=== PATIENT | male | born 1950 | race Caucasian/White ===

== ENCOUNTER 2017-07-18 19:21 | Emergency (ER) | payer OTHER, MEDICARE ==
[~2017-07-18] VITALS: Ht 177.8 cm; Wt 106.6 kg
[~2017-07-18 19:21] MED LIST: ASPIR-LOW81 MG PO; AUGMENTIN 875-1 EACH PO; CORGARD20 MG PO; COZAAR100 MG PO; LEVOTHYROXINE50 MCG PO; LIPITOR80 MG PO; LITHIUM CARBON300 MG PO; NUVIGIL250 MG PO; PANTOPRAZOLE SO40 MG PO; VENLAFAXINE HCL75 M2 PO; VENLAFAXINE HCL75 MG PO
[2017-07-18] MEDS ORDERED: GLIPIZIDE ER5 MG PO (19:56)
== END 2017-07-18 22:48 | disposition home or self-care (01) ==
LOC: ED 19:21
PROC: 0HQDXZZ Repair Right Lower Arm Skin, External Approach (ICD-10-PCS; principal; 2017-07-18)
DX: S56.221A Laceration of other flexor muscle, fascia and tendon at forearm level, right arm, initial encounter (principal); I10 Essential (primary) hypertension; E11.9 Type 2 diabetes mellitus without complications; F32.9 Major depressive disorder, single episode, unspecified; Z79.84 Long term (current) use of oral hypoglycemic drugs; Z79.899 Other long term (current) drug therapy; Z88.8 Allergy status to other drugs, medicaments and biological substances; Z23 Encounter for immunization; W45.8XXA Other foreign body or object entering through skin, initial encounter
CPT/HCPCS: 12032; 90471; 90715; 99282

== ENCOUNTER 2018-11-09 06:10 | Day surgery (SDC) | payer MEDICARE ==
[~2018-11-09] VITALS: Ht 177.8 cm; Wt 106.6 kg
[~2018-11-09 06:10] MED LIST changes: +GLIPIZIDE ER5 MG PO
--- NOTE | 2018-11-09 08:20 | NUR ---
11/09/18 0819 Nilda Barrientos 0815 PATIENT SLEEPING. RESP EVEN AND UNLABORED, NC OFF ON ARRIVAL TO PACU.
--- NOTE | 2018-11-09 10:25 | NUR ---
PT IS ALERT, ORIENTED AND SUPPORTED BY HIS ESME. PT HAS HAD PREVIOUS SCOPES, ESME SOMEWHAT ANXIOUS TODAY-MOSTLY DUE TO HER MEDICAL HISTORY. HAD PLEASANT VISIT, PT REQUESTED PRAYER, WILL FOLLOW NEEDED
--- NOTE | 2018-11-10 10:35 | OR ---
[facility] [address] [place], [place] [address] Signed DATE OF OPERATION: 11/09/2018 SURGEON: Peter Sanchez MD PREOPERATIVE DIAGNOSIS: History of episodic rectal bleeding, possible colitis in July 2018. POSTOPERATIVE DIAGNOSES: 1. Mild cecitis. 2. Internal hemorrhoids. PROCEDURE: Total colonoscopy to cecum with biopsy of cecum. ANESTHESIA: Intravenous sedation, fentanyl 100 mcg, Versed 5 mg. INDICATION: This 68-year-old white man is a patient of Dr. Olivier. He was noted to have abdominal pain, cramping, and blood per rectum and diarrhea while in [place], [place] in July 2018. A CT scan was performed at the emergency room there, which showed "colitis." His symptoms have largely resolved, having had antibiotic therapy. He still has some occasional rectal bleeding, but no diarrhea and no significant issues comparatively. He is admitted at this time to undergo colonoscopy to better characterize his episodic rectal bleeding. He understands the risks of bleeding, infection, and perforation related to colonoscopy and wished to proceed. FINDINGS: The prep was good. Complete colonoscopy was undertaken to the cecum. There was mild cecitis, which biopsies were obtained. Remaining colon appeared normal. There was no polyps or cancer. The rectum appeared normal except for internal hemorrhoids. DESCRIPTION OF PROCEDURE: The patient was brought to the endoscopy suite and placed in lateral decubitus position, given intravenous sedation to the point of slurred speech and nystagmus. Digital rectal examination was normal. An Olympus video colonoscope was passed in the rectum and manipulated throughout the colon, ultimately intubating the cecum itself. The ileocecal valve appeared normal. The appendiceal orifice was normal. There was mild inflammation of the cecum and on Electronically Signed By: PETER SANCHEZ MD 11/10/18 1035 PATIENT NAME: MOIZ GRANT JR OPERATIVE REPORT DATE OF : 52 REPORT #: [id number] PHYSICIAN: PETER SANCHEZ MD PCP: JOCELYN OLIVIER MD REPORT IS CONFIDENTIAL AND NOT TO BE RELEASED WITHOUT AUTHORIZATION [facility] [address] [place], [place] [address] Signed that basis, biopsies were obtained. The scope was then carefully withdrawn and examination throughout showed no sign of polyps, diverticular formation, colitis or cancer. Retroflex view did show internal hemorrhoidal changes. The scope was removed. The patient was taken to recovery room in good condition. CONCLUDING DIAGNOSIS: May well have had colitis in the past, now resolved. The cecum still with mild inflammation and now biopsied. PLAN: We will initiate fiber supplement, Citrucel 1 tablespoon daily. If his symptoms should recur or he should have other problems, I am happy to see him again. I would recommend repeat colonoscopy in 10 years otherwise. MD KEESHA Landry/NATE /[id number] cc: Jocelyn Olivier MD Copies: JOCELYN OLIVIER MD ~ Electronically Signed By: PETER SANCHEZ MD 10/05/19 1035 PATIENT NAME: MOIZ GRANT JR OPERATIVE REPORT DATE OF : 52 REPORT #: [id number] PHYSICIAN: PETER SANCHEZ MD PCP: JOCELYN OLIVIER MD REPORT IS CONFIDENTIAL AND NOT TO BE RELEASED WITHOUT AUTHORIZATION
--- NOTE | 2018-11-12 14:29 | PATH ---
[facility] [address] [place], [place] [address] Signed SPECIMEN(S): A CECUM SPECIMEN SOURCE: A. CECUM CLINICAL HISTORY: Rectal bleeding. MICROSCOPIC DESCRIPTION: Histologic sections of all submitted blocks are examined by light microscopy. These findings, together with the gross examination, support the pathologic diagnosis. FINAL PATHOLOGIC DIAGNOSIS: Colon, cecum, biopsy: - Fragments of benign colonic mucosa with aphthoid lesion. See Comment. - Negative for dysplasia or malignancy. COMMENT: Sections of the benign colonic mucosa demonstrate areas of surface epithelial infiltration by neutrophils overlying a lymphoid follicle. These findings are consistent with an aphthoid lesion, which can be seen following bowel preparation and sometimes appear as polypoid masses during colonoscopy. No granulomas or signs of chronicity, including crypt architectural distortion and basal lymphoplasmacytosis, are identified. No dysplasia or malignancy is seen. NAL:glc:C2NR GROSS DESCRIPTION: The specimen, labeled "RM, cecum," is received in formalin and consists of two rodriguez-white soft tissue fragments each measuring 0.2 cm in greatest dimension. The specimen is entirely submitted in cassette (A1). AR (under the direct supervision of a pathologist) The Gross Description was prepared using a voice recognition system. The report was reviewed for accuracy; however, sound-alike word errors, addition and/or deletions may occur. If there is any question about this report, please contact Client Services. PERFORMING LABORATORY: The technical component was performed by [facility], [address] [place] [id number] ([employer] Youth Supervisor: Zahraa Rodriges MD; CLIA# [id number]). PATIENT NAME: MOIZ GRANT JR PATHOLOGY DATE OF : 52 REPORT #: [id number] PHYSICIAN: TAMMY SENA PCP: JOCELYN PALM MD REPORT IS CONFIDENTIAL AND NOT TO BE RELEASED WITHOUT AUTHORIZATION [facility] [address] [place], [place] [address] Signed Professional interpretation was performed by [facility], [address] [address] ([employer] Supervisor: Masood Kimbrough MD; CLIA# [id number]). Diagnostician: April Mccormick MD Pathologist Electronically Signed 11/12/2018 Copies: ~ PATIENT NAME: MOIZ GRANT JR PATHOLOGY DATE OF : 52 REPORT #: [id number] PHYSICIAN: TAMMY SENA PCP: JOCELYN PALM MD REPORT IS CONFIDENTIAL AND NOT TO BE RELEASED WITHOUT AUTHORIZATION
== END 2018-11-09 09:10 | disposition home or self-care (01) ==
LOC: DS 06:10 → OPS 06:10 → DS 06:45 → OPS 09:10
PROVIDERS: Surgery
PROC: 0DBH8ZX Excision of Cecum, Via Natural or Artificial Opening Endoscopic, Diagnostic (ICD-10-PCS; principal; 2018-11-09 06:45)
DX: K64.8 Other hemorrhoids (principal); K52.9 Noninfective gastroenteritis and colitis, unspecified; F31.9 Bipolar disorder, unspecified; G47.33 Obstructive sleep apnea (adult) (pediatric); I10 Essential (primary) hypertension; K21.0 Gastro-esophageal reflux disease with esophagitis; E11.9 Type 2 diabetes mellitus without complications; G47.30 Sleep apnea, unspecified; E66.9 Obesity, unspecified; Z68.37 Body mass index [BMI] 37.0-37.9, adult; Z86.010 Personal history of colon polyps
CPT/HCPCS: 99153; G0500; J2250; J3010; J7120

== ENCOUNTER 2021-03-21 01:46 | Emergency (ER) | payer MEDICARE ==
[~2021-03-21] VITALS: Ht 177.8 cm; Wt 107.5 kg
[2021-03-21] MEDS ORDERED: METFORMIN HCL500 M1 PO (02:00)
[2021-03-21] MEDS ORDERED: ATIVAN1 MG PO ×2 (03:20→03:21)
--- NOTE | 2021-03-22 06:47 | EKG ---
[facility] [address] [facility] [place] [address] Signed Normal sinus rhythm Right bundle branch block T wave abnormality, consider inferolateral ischemia Abnormal ECG No previous ECGs available Confirmed by LULA BEDOYA MD ([id number]) on 03/22/2021 6:46:54 AM Electronically Signed By: LULA BEDOYA MD 03/22/21 0647 PATIENT NAME: MOIZ GRANT JR Electrocardiogram DATE OF : 52 PHYSICIAN: LULA BEDOYA MD REPORT #: [id number] REPORT IS CONFIDENTIAL AND NOT TO BE RELEASED WITHOUT AUTHORIZATION
== END 2021-03-21 05:24 | disposition home or self-care (01) ==
LOC: ED 01:46
DX: U07.1 COVID-19 (principal); I10 Essential (primary) hypertension; G47.30 Sleep apnea, unspecified; E03.9 Hypothyroidism, unspecified; E11.9 Type 2 diabetes mellitus without complications; Z88.8 Allergy status to other drugs, medicaments and biological substances; Z79.82 Long term (current) use of aspirin; Z79.84 Long term (current) use of oral hypoglycemic drugs; Z79.899 Other long term (current) drug therapy; Z23 Encounter for immunization
CPT/HCPCS: 36415; 71045; 80053; 83735; 83880; 84443; 84484; 85025; 85379; 85610; 93005; 93010; 96374; 99285-25; C9803; J2060; M0247; U0003

== ENCOUNTER 2022-01-19 13:15 | Emergency (ER) | payer MEDICARE ==
[~2022-01-19] VITALS: Ht 177.8 cm; Wt 102.1 kg
[~2022-01-19 13:15] MED LIST changes: +ATIVAN1 MG PO; +METFORMIN HCL500 M1 PO
--- OUTSIDE RECORDS SUMMARY | 2022-01-19 13:18 | XMS ---
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 - Patient with suicidal and/or homicidal ideations eloped. - Patient eloped with IV in place. Details: PATIENT LWBS CRITERIA MET - [facility] CARE PROVIDERS KELLI WALLS Physician Current PHONE: Unknown Alexander has no Care Guidelines for this patient. [facility] VISIT COUNT (12 MO.) 3 [facility] TOTAL 3 NOTE: Visits indicate total known visits. 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
[2022-01-19] MEDS ORDERED: OXYCODONE-ACET1 EAC1 PO (17:10)
[2022-01-19] MEDS ORDERED: DOCUSATE SODIU100 MG PO (17:10)
[2022-01-19] MEDS ORDERED: ONDANSETRON ODT4 MG PO (21:15)
--- NOTE | 2022-01-22 19:00 | EKG ---
[facility] [address] [facility] [place] [address] Signed Normal sinus rhythm Right bundle branch block T wave abnormality, consider inferolateral ischemia Abnormal ECG When compared with ECG of 21-MAR-2021 01:56, T wave inversion more evident in Anterior leads QT has lengthened Confirmed by ELENI KERN MD ([id number]) on 01/22/2022 7:00:38 PM Electronically Signed By: ELENI KERN MD 01/22/22 1900 PATIENT NAME: MOIZ GRANT JR Electrocardiogram DATE OF : 52 PHYSICIAN: ELENI KERN MD REPORT #: [id number] REPORT IS CONFIDENTIAL AND NOT TO BE RELEASED WITHOUT AUTHORIZATION
== END 2022-01-19 21:34 | disposition home or self-care (01) ==
LOC: ED 13:15
DX: B34.9 Viral infection, unspecified (principal); I10 Essential (primary) hypertension; G47.30 Sleep apnea, unspecified; E03.9 Hypothyroidism, unspecified; E11.9 Type 2 diabetes mellitus without complications; Z88.8 Allergy status to other drugs, medicaments and biological substances; Z79.899 Other long term (current) drug therapy; Z79.84 Long term (current) use of oral hypoglycemic drugs
CPT/HCPCS: 36415; 71045; 80053; 83735; 84484; 85025; 93005; 93010; 96361; 96374; 96375; 99285-25; J2405; J7030

== ENCOUNTER 2022-09-22 11:42 | Emergency (ER) | payer MEDICARE ==
[~2022-09-22] VITALS: Ht 177.8 cm; Wt 96.6 kg
--- OUTSIDE RECORDS SUMMARY | ~2022-09-22 | XMS | Continuity of Care Document ---
Demographics + + + | Address | [address] | | | [place] [address] | + + + | Preferred Language | Unknown | + + + | Marital Status | | + + + | Latter Day Affiliation | Unknown | + + + | Race | White | + + + | Ethnic Group | Not or | + + + Author + + + | Author | [facility] | + + + | Organization | [facility] | + + + | Address | [address] [facility] | | | [place] [address] | + + + | Phone | | + + + Care Team Providers + + + + | Care Regional Economic Liaison Name | Role | Phone | + + + + Unavailable | Unavailable | + + + + Unavailable | Unavailable | + + + + Allergies and Intolerances + + + + + + | date | description | facility | reaction | severity | + + + + + + | (no date) | Quetiapine | [facility] | (no reaction) | (no severity) | | [facility] | | | + + + + + + | (no date) | Quetiapine | [facility] | (no reaction) | (no severity) | | | [facility] | | | + + + + + + | (no date) | Palpitations | [facility] | (no reaction) | (no severity) | | | [facility] | | | + + + + + + | (no date) | Quetiapine | [facility] | (no reaction) | (no severity) | | | | [facility] | | | + + + + + + Encounters No information. Functional Status No information. Immunizations + + + + | date | description | facility | + + + + | 2017-07-18 00:00 | Tdap | [facility] | + + + + Medications + + + + | date | description | facility | + + + + | 2021-03-21 00:00 | LORAZEPAM | [facility] | + + + + | 2022-01-19 00:00 | ONDANSETRON | [facility] | + + + + | 2022-01-19 00:00 | OXYCODONE | [facility] | | | HCL/ACETAMINOPHEN | | + + + + | 2022-01-19 00:00 | DOCUSATE SODIUM | [facility] | + + + + | 2015-08-17 00:00 | ASPIRIN | [facility] | + + + + | 2021-11-28 00:00 | LITHIUM CARBONATE | [facility] | + + + + | 2022-01-19 00:00 | LITHIUM CARBONATE | [facility] | + + + + | 2021-11-28 00:00 | NADOLOL | [facility] | + + + + | 2022-01-19 00:00 | NADOLOL | [facility] | + + + + | 2015-08-17 00:00 | ATORVASTATIN | [facility] | + + + + | 2021-11-28 00:00 | GLIPIZIDE | [facility] | + + + + | 2022-01-19 00:00 | GLIPIZIDE | [facility] | + + + + | 2021-11-28 00:00 | PANTOPRAZOLE SODIUM | [facility] | + + + + | 2022-01-19 00:00 | PANTOPRAZOLE SODIUM | [facility] | + + + + | 2021-11-28 00:00 | VENLAFAXINE HCL | [facility] | + + + + | 2022-01-19 00:00 | VENLAFAXINE HCL | [facility] | + + + + | 2021-11-28 00:00 | METFORMIN HCL | [facility] | + + + + | 2022-01-19 00:00 | METFORMIN HCL | [facility] | + + + + | 2021-11-28 00:00 | LEVOTHYROXINE SODIUM | [facility] | + + + + | 2022-01-19 00:00 | LEVOTHYROXINE SODIUM | [facility] | + + + + | 2015-08-17 00:00 | LOSARTAN POTASSIUM | [facility] | + + + + | 2021-11-28 00:00 | LOSARTAN POTASSIUM | [facility] | + + + + | 2022-01-19 00:00 | LOSARTAN POTASSIUM | [facility] | + + + + Problems + + + + | date | description | facility | + + + + | 2015-08-16 00:00 | Acute cerebrovascular | [facility] | | | accident (CVA) | | + + + + | 2015-08-17 00:00 | Transient cerebral | [facility] | | | ischemia | | + + + + | 2017-07-18 00:00 | Laceration of right | [facility] | | | forearm with tendon | | | | involvement | | + + + + | 2021-03-21 00:00 | Infection due to severe | [facility] | | | acute respiratory syndrome | | | | coronavirus 2 (SARS-CoV-2) | | + + + + | 2021-11-28 00:00 | Patient left without being | [facility] | | | seen | | + + + + | 2022-01-19 00:00 | Viral infection | 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 Results/Labs +--------+--------+ +---------+--------+---------+ | test | date | facility | value | unit | notes | +--------+--------+ +---------+--------+---------+ + + | Result panel 1 | + + + + + +-------+ + + | | 2022-01-19 | [facility] | 8.3 | (missing) | (missing) | | (unavailable | 18:15:08 [facility] | | | | + + + +-------+ + + + + | Result panel 2 | + + + + + +--------+ + + | | 2022-01-19 | [facility] | 66.6 | (missing) | (missing) | | (unavailable | 18:15:08 [facility] | | | | + + + +--------+ + + + + | Result panel 3 | + + + + + +--------+ + + | | 2022-01-19 | [facility] | 18.6 | (missing) | (missing) | | (unavailable | 18:15:08 [facility] | | | | + + + +--------+ + + + + | Result panel 4 | + + + + + +--------+ + + | | 2022-01-19 | [facility] | 10.0 | (missing) | (missing) | | (unavailable | 18:15:08 [facility] | | | | + + + +--------+ + + + + | Result panel 5 | + + + + + +-------+ + + | | 2022-01-19 | [facility] | 4.0 | (missing) | (missing) | | (unavailable | 18:15:08 [facility] | | | | + + + +-------+ + + + + | Result panel 6 | + + + + + +-------+ + + | | 2022-01-19 | [facility] | 0.8 | (missing) | (missing) | | (unavailable | 18:15:08 [facility] | | | | + + + +-------+ + + + + | Result panel 7 | + + + + + +------+---------+ + | | 2022-01-19 | [facility] | 76 | mg/dL | (missing) | | (unavailable | 18:15:08 [facility] | | | | + + + +------+---------+ + + + | Result panel 8 | + + + + + +------+---------+ + | | 2022-01-19 | [facility] | 19 | mg/dL | (missing) | | (unavailable | 18:15:08 [facility] | | | | + + + +------+---------+ + + + | Result panel 9 | + + + + + +--------+---------+ + | | 2022-01-19 | [facility] | 1.28 | mg/dL | (missing) | | (unavailable | 18:15:08 [facility] | | | | + + + +--------+---------+ + + + | Result panel 10 | + + + + + +------+ + + | | 2022-01-19 | [facility] | 60 | (missing) | (missing) | | (unavailable | 18:15:08 [facility] | | | | + + + +------+ + + + + | Result panel 11 | + + + + + +--------+ + + | | 2022-01-19 | [facility] | 4.77 | (missing) | (missing) | | (unavailable | 18:15:08 [facility] | | | | + + + +--------+ + + + + | Result panel 12 | + + + + + +---------+ + + | | 2022-01-19 | [facility] | 14.84 | (missing) | (missing) | | (unavailable | 18:15:08 [facility] | | | | + + + +---------+ + + + + | Result panel 13 | + + + + + +-------+ + + | | 2022-01-19 | [facility] | 137 | (missing) | (missing) | | (unavailable | 18:15:08 [facility] | | | | + + + +-------+ + + + + | Result panel 14 | + + + + + +-------+ + + | | 2022-01-19 | [facility] | 3.4 | (missing) | (missing) | | (unavailable | 18:15:08 [facility] | | | | + + + +-------+ + + + + | Result panel 15 | + + + + + +-------+ + + | | 2022-01-19 | [facility] | 101 | (missing) | (missing) | | (unavailable | 18:15:08 [facility] | | | | + + + +-------+ + + + + | Result panel 16 | + + + + + +------+ + + | | 2022-01-19 | [facility] | 28 | (missing) | (missing) | | (unavailable | 18:15:08 [facility] | | | | + + + +------+ + + + + | Result panel 17 | + + + + + +--------+ + + | | 2022-01-19 | [facility] | 11.4 | (missing) | (missing) | | (unavailable | 18:15:08 [facility] | | | | + + + +--------+ + + + + | Result panel 18 | + + + + + +-------+---------+ + | | 2022-01-19 | [facility] | 9.5 | mg/dL | (missing) | | (unavailable | 18:15:08 [facility] | | | | + + + +-------+---------+ + + + | Result panel 19 | + + + + + +-------+---------+ + | | 2022-01-19 | [facility] | 2.1 | mg/dL | (missing) | | (unavailable | 18:15:08 [facility] | | | | + + + +-------+---------+ + + + | Result panel 20 | + + + + + +-------+ + + | | 2022-01-19 | [facility] | 7.8 | (missing) | (missing) | | (unavailable | 18:15:08 [facility] | | | | + + + +-------+ + + + + | Result panel 21 | + + + + + +-------+ + + | | 2022-01-19 | [facility] | 3.7 | (missing) | (missing) | | (unavailable | 18:15:08 [facility] | | | | + + + +-------+ + + + + | Result panel 22 | + + + + + +--------+ + + | | 2022-01-19 | [facility] | 13.9 | (missing) | (missing) | | (unavailable | 18:15:08 [facility] | | | | + + + +--------+ + + + + | Result panel 23 | + + + + + +-------+ + + | | 2022-01-19 | [facility] | 4.1 | (missing) | (missing) | | (unavailable | 18:15:08 [facility] | | | | + + + +-------+ + + + + | Result panel 24 | + + + + + +--------+ + + | | 2022-01-19 | [facility] | 0.90 | (missing) | (missing) | | (unavailable | 18:15:08 [facility] | | | | + + + +--------+ + + + + | Result panel 25 | + + + + + +-------+ + + | | 2022-01-19 | [facility] | 0.4 | (missing) | (missing) | | (unavailable | 18:15:08 [facility] | | | | + + + +-------+ + + + + | Result panel 26 | + + + + + +------+ + + | | 2022-01-19 | [facility] | 30 | (missing) | (missing) | | (unavailable | 18:15:08 [facility] | | | | + + + +------+ + + + + | Result panel 27 | + + + + + +------+ + + | | 2022-01-19 | [facility] | 61 | (missing) | (missing) | | (unavailable | 18:15:08 [facility] | | | | + + + +------+ + + + + | Result panel 28 | + + + + + +-------+ + + | | 2022-01-19 | [facility] | 113 | (missing) | (missing) | | (unavailable | 18:15:08 [facility] | | | | + + + +-------+ + + + + | Result panel 29 | + + + + + +-------+ + + | | 2022-01-19 | [facility] | 5.5 | (missing) | (missing) | | (unavailable | 18:15:08 [facility] | | | | + + + +-------+ + + + + | Result panel 30 | + + + + + +--------+ + + | | 2022-01-19 | [facility] | 42.0 | (missing) | (missing) | | (unavailable | 18:15:08 [facility] | | | | + + + +--------+ + + + + | Result panel 31 | + + + + + +--------+ + + | | 2022-01-19 | [facility] | 87.9 | (missing) | (missing) | | (unavailable | 18:15:08 [facility] | | | | + + + +--------+ + + + + | Result panel 32 | + + + + + +--------+ + + | | 2022-01-19 | [facility] | 29.2 | (missing) | (missing) | | (unavailable | 18:15:08 [facility] | | | | + + + +--------+ + + + + | Result panel 33 | + + + + + +--------+ + + | | 2022-01-19 | [facility] | 33.2 | (missing) | (missing) | | (unavailable | 18:15:08 [facility] | | | | + + + +--------+ + + + + | Result panel 34 | + + + + + +--------+ + + | | 2022-01-19 | [facility] | 14.0 | (missing) | (missing) | | (unavailable | 18:15:08 [facility] | | | | + + + +--------+ + + + + | Result panel 35 | + + + + + +-------+ + + | | 2022-01-19 | [facility] | 316 | (missing) | (missing) | | (unavailable | 18:15:08 [facility] | | | | + + + +-------+ + + + + | Result panel 36 | + + + + + +-------+ + + | | 2022-01-19 | [facility] | 100 | (missing) | (missing) | | (unavailable | 19:36:08 [facility] | | | | + + + +-------+ + + Social History No information. Vital Signs + + + +---------+ | date | measurement | value | units | + + + +---------+ | 2021-11-28 00:00 | BMI | 32.4 | kg/m2 | + + + +---------+ | 2021-11-28 00:00 | BP_diastolic | 81 | mmHg | + + + +---------+ | 2021-11-28 00:00 | BP_systolic | 164 | mmHg | + + + +---------+ | 2021-11-28 00:00 | heart_rate | 72 | /min | + + + +---------+ | 2021-11-28 00:00 | height_metric | 177.8 | cm | + + + +---------+ | 2021-11-28 00:00 | height_standard | 70 | in | + + + +---------+ | 2021-11-28 00:00 | o2_saturation | 99 | % | + + + +---------+ | 2021-11-28 00:00 | respiration_rate | 16 | /min | + + + +---------+ | 2021-11-28 00:00 | temperature_metric | 37 | C | | | | | | + + + +---------+ | 2021-11-28 00:00 | | 98.6 | F | | | temperature_standar | | | | | d | | | + + + +---------+ | 2021-11-28 00:00 | weight_metric | 102.5 | kg | + + + +---------+ | 2021-11-28 00:00 | weight_standard | 225.97 | lb | + + + +---------+ | 2021-11-28 00:00 | weight_standard | 225.98 | lb | + + + +---------+ | 2022-01-19 00:00 | BMI | 32.3 | kg/m2 | + + + +---------+ | 2022-01-19 00:00 | BP_diastolic | 76 | mmHg | + + + +---------+ | 2022-01-19 00:00 | BP_systolic | 142 | mmHg | + + + +---------+ | 2022-01-19 00:00 | heart_rate | 80 | /min | + + + +---------+ | 2022-01-19 00:00 | height_metric | 177.8 | cm | + + + +---------+ | 2022-01-19 00:00 | height_standard | 70 | in | + + + +---------+ | 2022-01-19 00:00 | o2_saturation | 96 | % | + + + +---------+ | 2022-01-19 00:00 | respiration_rate | 16 | /min | + + + +---------+ | 2022-01-19 00:00 | temperature_metric | 36.89 | C | | | | | | + + + +---------+ | 2022-01-19 00:00 | | 98.4 | F | | | temperature_standar | | | | | d | | | + + + +---------+ | 2022-01-19 00:00 | weight_metric | 102.06 | kg | + + + +---------+ | 2022-01-19 00:00 | weight_standard | 225 | lb | + + + +---------+"
--- OUTSIDE RECORDS SUMMARY | ~2022-09-22 | XMS | Continuity of Care Document ---
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 | + + + + Medications + + + + | date | description | facility | + + + + | 2021-03-21 00:00 | LORAZEPAM | [facility] | + + + + | 2022-01-19 00:00 | ONDANSETRON | [facility] | + + + + | 2022-01-19 00:00 | OXYCODONE | [facility] | | | HCL/ACETAMINOPHEN | | + + + + | 2022-01-19 00:00 | DOCUSATE SODIUM | [facility] | + + + + | 2015-08-17 00:00 | ASPIRIN | [facility] | + + + + | 2021-11-28 00:00 | LITHIUM CARBONATE | [facility] | + + + + | 2022-01-19 00:00 | LITHIUM CARBONATE | [facility] | + + + + | 2021-11-28 00:00 | NADOLOL | [facility] | + + + + | 2022-01-19 00:00 | NADOLOL | [facility] | + + + + | 2015-08-17 00:00 | ATORVASTATIN | [facility] | + + + + | 2021-11-28 00:00 | GLIPIZIDE | [facility] | + + + + | 2022-01-19 00:00 | GLIPIZIDE | [facility] | + + + + | 2021-11-28 00:00 | PANTOPRAZOLE SODIUM | [facility] | + + + + | 2022-01-19 00:00 | PANTOPRAZOLE SODIUM | [facility] | + + + + | 2021-11-28 00:00 | VENLAFAXINE HCL | [facility] | + + + + | 2022-01-19 00:00 | VENLAFAXINE HCL | [facility] | + + + + | 2021-11-28 00:00 | METFORMIN HCL | [facility] | + + + + | 2022-01-19 00:00 | METFORMIN HCL | [facility] | + + + + | 2021-11-28 00:00 | LEVOTHYROXINE SODIUM | [facility] | + + + + | 2022-01-19 00:00 | LEVOTHYROXINE SODIUM | [facility] | + + + + | 2015-08-17 00:00 | LOSARTAN POTASSIUM | [facility] | + + + + | 2021-11-28 00:00 | LOSARTAN POTASSIUM | [facility] | + + + + | 2022-01-19 00:00 | LOSARTAN POTASSIUM | [facility] | + + + + Problems + + + + | date | description | facility | + + + + | 2015-08-16 00:00 | Acute cerebrovascular | [facility] | | | accident (CVA) | | + + + + | 2015-08-17 00:00 | Transient cerebral | [facility] | | | ischemia | | + + + + | 2017-07-18 00:00 | Laceration of right | [facility] | | | forearm with tendon | | | | involvement | | + + + + | 2021-03-21 00:00 | Infection due to severe | [facility] | | | acute respiratory syndrome | | | | coronavirus 2 (SARS-CoV-2) | | + + + + | 2021-11-28 00:00 | Patient left without being | [facility] | | | seen | | + + + + | 2022-01-19 00:00 | Viral infection | [facility] | + + + + | 2022-01-19 [...] + + + | 2022-01-19 13:16 | JERKER (CURRENT) USE OF | [facility] | | | ORAL HYPOGLYCEMIC DRUGS | | + + + + | 2022-01-19 13:16 | OTHER CARE HOME (CURRENT) | [facility] | | | DRUG [...]
[~2022-09-22 11:42] MED LIST changes: +DOCUSATE SODIU100 MG PO; +ONDANSETRON ODT4 MG PO; +OXYCODONE-ACET1 EAC1 PO
[2022-09-22 12:27] LABS: EOSINOPHILS 3.2 % (0-6); HEMATOCRIT 41.6 % (35.0-50.0); HEMOGLOBIN 13.8 g/dL (12.0-18.0); LYMPHOCYTES 27.9 % (24-44); MCH 30.7 (27-36); MCHC 33.1 g/dl (30-36); MCV 92.9 fl (81-99); MONOCYTES 8.8 % (0-12); NEUTROPHILS 59.1 % (39-80); PLATELET COUNT 259 K/uL (140-440); RBC 4.48 M/ul (4.3-5.7); RDW 13.8 (10.5-15.0)
[2022-09-22 12:42] LABS: ALBUMIN 3.6 g/dL (3.4-5.0); ANION GAP 14.3 (7-21); BILIRUBIN, TOTAL 0.5 ng/dL (0.2-1.0); BUN/CREATININE RATIO 14.17 (6.0-28.6); CALCIUM 8.9 mg/dL (8.5-10.1); CREATININE, SERUM 1.27 mg/dL (0.70-1.30); POTASSIUM 4.3 mmol/L (3.5-5.1); PROTEIN, TOTAL 7.2 g/dL (6.4-8.2)
[2022-09-22 14:53] VITALS: BP 154/80
== END 2022-09-22 14:53 | disposition home or self-care (01) ==
LOC: ED 11:42
PROVIDERS: Student in an Organized Health Care Education/Training Program
DX: E11.65 Type 2 diabetes mellitus with hyperglycemia (principal); R53.1 Weakness; Z79.84 Long term (current) use of oral hypoglycemic drugs; Z79.899 Other long term (current) drug therapy; Z88.8 Allergy status to other drugs, medicaments and biological substances; I10 Essential (primary) hypertension; E03.9 Hypothyroidism, unspecified; G47.30 Sleep apnea, unspecified
CPT/HCPCS: 36415; 80053; 85025; 96360; 99284-25; J1815; J7030

== ENCOUNTER 2023-06-04 07:01 | Emergency (ER) | payer MEDICARE ==
[~2023-06-04] VITALS: Ht 177.8 cm; Wt 102.3 kg
--- NOTE | ~2023-06-04 | EKG ---
[facility] [address] [facility] [place], [place] [address] Draft EK completed, results pending confirmation PATIENT NAME: MOIZ GRANT JR Electrocardiogram DATE OF : 52 PHYSICIAN: PRELIMINARY REPORT #: [id number] REPORT IS CONFIDENTIAL AND NOT TO BE RELEASED WITHOUT AUTHORIZATION
[2023-06-04] MEDS ORDERED: MECLIZINE HCL 25 MG TAB PO ONE (07:30)
[2023-06-04] MEDS ORDERED: SODIUM CHLORIDE 0.9% 1,000 ML IV PRN (07:30)
[2023-06-04 07:35] LABS: EOSINOPHILS 3.8 % (0-6); HEMATOCRIT 42.1 % (35.0-50.0); HEMOGLOBIN 14.2 g/dL (12.0-18.0); LYMPHOCYTES 23.3 % (24-44); MCH 31.3 (27-36); MCHC 33.8 g/dl (30-36); MCV 92.6 fl (81-99); MONOCYTES 8.4 % (0-12); NEUTROPHILS 63.5 % (39-80); PLATELET COUNT 314 K/uL (140-440); RBC 4.54 M/ul (4.3-5.7); RDW 13.8 (10.5-15.0)
[2023-06-04] MEDS ORDERED: diazePAM 10 MG/2 ML SYR IV ONE ×2 (07:45→08:00)
[2023-06-04 07:50] LABS: ALBUMIN 3.8 g/dL (3.4-5.0); ALBUMIN/GLOBULIN RATIO 1.03 (1.1-2.4); ANION GAP 13.2 (7-21); BILIRUBIN, TOTAL 0.5 ng/dL (0.2-1.0); BUN/CREATININE RATIO 14.04 (6.0-28.6); CALCIUM 9.1 mg/dL (8.5-10.1); CREATININE, SERUM 1.21 mg/dL (0.70-1.30); MAGNESIUM 1.9 mg/dL (1.8-2.4); POTASSIUM 4.2 mmol/L (3.5-5.1); PROTEIN, TOTAL 7.5 g/dL (6.4-8.2)
[2023-06-04 08:49] LABS: BILIRUBIN, URINE NEGATIVE (negative); BLOOD/HGB, URINE NEGATIVE (Negative); KETONE, URINE NEGATIVE (Negative); LEUK ESTERASE, URINE NEGATIVE (negative); NITRITE, URINE NEGATIVE (negative)
[2023-06-04 08:54] LABS: RED BLOOD CELLS, URINE 0-1 /hpf (0-5)
[2023-06-04 08:55] LABS: BACTERIA, URINE NONE SEEN /hpf (negative); CASTS, URINE NONE SEEN \\lpf; COLLECTION TYPE, URINE CLEAN CATCH; CRYSTALS, URINE NONE SEEN (0-1+); REFLEX CULTURE, URINE No (No)
[2023-06-04] MEDS ORDERED: LORazepam 1 MG TAB PO ONE (09:00)
[2023-06-04 09:03] LABS: AMPHETAMINES, URINE NEGATIVE (NEGATIVE); BARBITURATES, URINE NEGATIVE (NEGATIVE); BENZODIAZEPINE, URINE NEGATIVE (NEGATIVE); BUPRENORPHINE, URINE NEGATIVE (NEGATIVE); CANNABINOID, URINE NEGATIVE (NEGATIVE); COCAINE, URINE NEGATIVE (NEGATIVE); ECSTASY, URINE NEGATIVE (NEGATIVE); FENTANYL, URINE NEGATIVE (NEGATIVE); METHADONE, URINE NEGATIVE (NEGATIVE); OPIATES, URINE NEGATIVE (NEGATIVE); OXYCODONE, URINE NEGATIVE (NEGATIVE); PHENCYCLIDINE, URINE NEGATIVE (NEGATIVE)
[2023-06-04] MEDS ORDERED: VALIUM5 MG PO (10:25)
[2023-06-04 10:38] VITALS: BP 183/92
--- NOTE | 2023-06-05 22:49 | EKG ---
[facility] [address] [place] [address] Signed Poor data quality, interpretation may be adversely affected Sinus rhythm with 1st degree AV block Right bundle branch block T wave abnormality, consider inferolateral ischemia Abnormal ECG When compared with ECG of 04-JUN-2023 07:32, (Unconfirmed) AR interval has increased ST no longer elevated in Inferior leads Inverted T waves have replaced nonspecific T wave abnormality in Lateral leads QT has shortened Confirmed by Kathy Ryan MD () on 06/05/2023 10:49:48 PM Electronically Signed By: KATHY RYAN MD 06/05/23 2249 PATIENT NAME: MOIZ GRANT Electrocardiogram DATE OF : 52 PHYSICIAN: KATHY RYAN MD REPORT #: [id number] REPORT IS CONFIDENTIAL AND NOT TO BE RELEASED WITHOUT AUTHORIZATION
[2023-06-10] MEDS ORDERED: HYDROXYZINE HCL25 MG PO (18:51)
[2023-06-10] MEDS ORDERED: CYCLOBENZAPRINE10 MG PO (18:51)
== END 2023-06-04 10:36 | disposition home or self-care (01) ==
LOC: ED 07:01
PROVIDERS: Emergency Medicine
DX: F41.0 Panic disorder [episodic paroxysmal anxiety] (principal); I10 Essential (primary) hypertension; G47.30 Sleep apnea, unspecified; E03.9 Hypothyroidism, unspecified; F32.A Depression, unspecified; E11.9 Type 2 diabetes mellitus without complications; Z88.8 Allergy status to other drugs, medicaments and biological substances; Z79.890 Hormone replacement therapy; Z79.84 Long term (current) use of oral hypoglycemic drugs; Z79.899 Other long term (current) drug therapy
CPT/HCPCS: 36415; 70450; 71045; 80053; 80307; 81001; 83735; 84484; 85025; 93005; 93010; 96374; 99284-25; A9270; A9270-GY; J3360; J7030

== ENCOUNTER 2023-06-11 07:49 | Inpatient (IN) | payer MEDICARE ==
[2023-06-11] VITALS (10 sets, daily range): BP systolic 93–186; BP diastolic 46–109
[~2023-06-11] VITALS: Ht 177.8 cm; Wt 102.1 kg
[~2023-06-11 07:49] MED LIST changes: +CYCLOBENZAPRINE10 MG PO; +HYDROXYZINE HCL25 MG PO; +VALIUM5 MG PO
--- OUTSIDE RECORDS SUMMARY | 2023-06-11 07:51 | XMS ---
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 [facility] has no Care Guidelines for this patient. [facility] VISIT COUNT (12 MO.) [facility] TOTAL 4 NOTE: Visits indicate total known visits. ED/C VISIT TRACKING (12 MO.) [facility] [place] [facility] COMPLAINT: - SHORTNESS OF BREATH 06/10/2023 17:37 [facility] [place] TYPE: Emergency COMPLAINT: - BACK PAIN 06/04/2023 07:02 [facility] [place] TYPE: Emergency COMPLAINT: - DIZZINESS DIAGNOSES: - Allergy status to other drugs, medicaments and biological substances - Depression, unspecified - Dizziness and giddiness - Essential (primary) hypertension - Hormone replacement therapy - Hypothyroidism, unspecified - intermediate (current) use of oral hypoglycemic drugs - Other half-way (current) drug therapy - Panic disorder [episodic paroxysmal anxiety] - Sleep apnea, unspecified - Type 2 diabetes mellitus without complications 09/22/2022 11:43 [facility] [place] TYPE: Emergency COMPLAINT: - HIGH BLOOD SUGAR DIAGNOSES: - Allergy status to other drugs, medicaments and biological substances - Essential (primary) hypertension - Hypothyroidism, unspecified - salvage determiner (current) use of oral hypoglycemic drugs - Other terminal manager (current) drug therapy - Sleep apnea, unspecified - Type 2 diabetes mellitus with hyperglycemia - Weakness INPATIENT VISIT TRACKING (12 MO.) No inpatient visits to display in this time frame [email or web address]
[2023-06-11] MEDS ORDERED: MIDAZOLAM HCL 2 MG/2 ML VIAL IV ONE (08:00)
[2023-06-11 08:10] LABS: BASOPHILS 0.8 % (0-2); EOSINOPHILS 2.1 % (0-6); HEMATOCRIT 43.5 % (35.0-50.0); HEMOGLOBIN 14.7 g/dL (12.0-18.0); LYMPHOCYTES 24.5 % (24-44); MCHC 33.8 g/dl (30-36); MCV 91.8 fl (81-99); MONOCYTES 7.7 % (0-12); NEUTROPHILS 64.9 % (39-80); PLATELET COUNT 363 K/uL (140-440); RBC 4.74 M/ul (4.3-5.7); RDW 13.6 (10.5-15.0)
[2023-06-11 08:21] LABS: LITHIUM 2.7 mmol/L (0.6-1.2)
[2023-06-11] MEDS ORDERED: SODIUM CHLORIDE 0.9% 1,000 ML IV ONE (08:30)
[2023-06-11 08:38] LABS: ALBUMIN 4.3 g/dL (3.4-5.0); ALBUMIN/GLOBULIN RATIO 1.1 (1.1-2.4); BILIRUBIN, TOTAL 0.8 ng/dL (0.2-1.0); BUN/CREATININE RATIO 11.18 (6.0-28.6); CALCIUM 9.9 mg/dL (8.5-10.1); CREATININE, SERUM 1.43 mg/dL (0.70-1.30); PROTEIN, TOTAL 8.2 g/dL (6.4-8.2)
[2023-06-11] MEDS ORDERED: SODIUM POLYSTYRENE SULFONATE 15 GM/60 ML UDC PO ONE (09:15)
[2023-06-11] MEDS ORDERED: SODIUM CHLORIDE 0.9% 1,000 ML IV SCH ×2 (09:30→10:30)
[2023-06-11] MEDS ORDERED: MAGNESIUM SULFATE 2 GM/50 ML BAG IV ONE (09:30)
[2023-06-11] MEDS ORDERED: ACETAMINOPHEN 500 MG TAB PO PRN (10:30)
[2023-06-11] MEDS ORDERED: bisacodyL 10 MG SUPP PR PRN (10:30)
[2023-06-11] MEDS ORDERED: MAGNESIUM HYDROXIDE 30 ML UDC PO PRN (10:30)
[2023-06-11] MEDS ORDERED: MAGNESIUM HYDROXIDE/AL HYDROX 30 ML CUP PO PRN (10:30)
[2023-06-11] MEDS ORDERED: TRAZODONE HCL100 MG PO (10:41)
[2023-06-11] MEDS ORDERED: LITHIUM CARBON300 M1 PO (10:42)
[2023-06-11] MEDS ORDERED: OXYBUTYNIN CHLO10 MG PO (10:43)
[2023-06-11] MEDS ORDERED: MAGNESIUM SULFATE IV SCH (10:45)
[2023-06-11] MEDS ORDERED: LORazepam 1 MG TAB PO PRN (11:00)
[2023-06-11] MEDS ORDERED: LORazepam 2 MG/ML VIAL IV PRN (11:00)
[2023-06-11] MEDS ORDERED: MAGNESIUM SULFATE 4 GM/100 ML BAG IV SCH (11:00)
[2023-06-11 11:07] LABS: LITHIUM 1.3 mmol/L (0.6-1.2)
[2023-06-11] MEDS ORDERED: LORazepam 2 MG/ML VIAL IV STA (11:59)
[2023-06-11] MEDS ORDERED: PHARMACY RENAL DOSE ADJUSTMENT 1 DOSE MISC PO SCH (12:00)
[2023-06-11] MEDS ORDERED: GLUCAGON,HUMAN RECOMBINANT 1 MG/ML VIAL SUB-Q PRN (15:45)
[2023-06-11] MEDS ORDERED: IBLOOD GLUCOSE TEST STRIP 1 EA TEST XX PRN (15:45)
[2023-06-11] MEDS ORDERED: DEXTROSE 5% 1,000 ML IV PRN (15:45)
[2023-06-11] MEDS ORDERED: DEXTROSE 50% 50 ML SYR IV PRN ×2 (15:45)
[2023-06-11] MEDS ORDERED: IBLOOD GLUCOSE TEST STRIP 1 EA TEST VI SCH (17:00)
[2023-06-11] MEDS ORDERED: INSULIN LISPRO 100 UNIT/ML ML SUB-Q SCH (17:00)
[2023-06-11 18:10] LABS: ANION GAP 17.4 (7-21); BUN/CREATININE RATIO 10.56 (6.0-28.6); CALCIUM 8.9 mg/dL (8.5-10.1); CREATININE, SERUM 1.23 mg/dL (0.70-1.30); POTASSIUM 4.4 mmol/L (3.5-5.1)
[2023-06-11] MEDS ORDERED: diazePAM 5 MG TAB PO PRN (19:00)
[2023-06-11] MEDS ORDERED: CYCLOBENZAPRINE HCL 10 MG TAB PO PRN (19:00)
[2023-06-11] MEDS ORDERED: hydrOXYzine pamoate 25 MG CAP PO PRN (19:00)
[2023-06-11] MEDS ORDERED: TRAZODONE HCL 100 MG TAB PO SCH (21:00)
[2023-06-12] VITALS (13 sets, daily range): BP systolic 92–151; BP diastolic 52–87
[2023-06-12 03:43] LABS: LITHIUM 0.9 mmol/L (0.6-1.2)
[2023-06-12 05:13] LABS: BASOPHILS 0.8 % (0-2); EOSINOPHILS 3.7 % (0-6); HEMATOCRIT 36.7 % (35.0-50.0); HEMOGLOBIN 12.8 g/dL (12.0-18.0); LYMPHOCYTES 20.3 % (24-44); MCH 31.9 (27-36); MCHC 34.7 g/dl (30-36); MCV 91.7 fl (81-99); MONOCYTES 9.4 % (0-12); NEUTROPHILS 65.8 % (39-80); PLATELET COUNT 244 K/uL (140-440); RDW 13.5 (10.5-15.0)
[2023-06-12 05:22] LABS: ANION GAP 14.7 (7-21); BUN/CREATININE RATIO 9.82 (6.0-28.6); CALCIUM 7.8 mg/dL (8.5-10.1); CREATININE, SERUM 1.12 mg/dL (0.70-1.30); POTASSIUM 3.7 mmol/L (3.5-5.1)
--- NOTE | 2023-06-12 07:22 | EKG ---
[facility] [address] [facility] [place], [place] [address] Signed Normal sinus rhythm Incomplete right bundle branch block ST \T\ T wave abnormality, consider inferior ischemia Abnormal ECG Confirmed by Althea Anne MD ([id number]) on 06/12/2023 7:23:13 AM Electronically Signed By: ALTHEA ANNE 06/12/23 0722 PATIENT NAME: MOIZ GRANT Electrocardiogram DATE OF : 52 PHYSICIAN: ALTHEA ANNE REPORT #: [id number] REPORT IS CONFIDENTIAL AND NOT TO BE RELEASED WITHOUT AUTHORIZATION
--- NOTE | 2023-06-12 07:23 | EKG ---
[facility] [address] [facility] [place] [address] Signed Sinus bradycardia with 1st degree AV block Right bundle branch block T wave abnormality, consider lateral ischemia Abnormal ECG When compared with ECG of 11-JUN-2023 17:29, (Unconfirmed) W[place] interval has increased Vent. rate has decreased BY 46 BPM T wave inversion no longer evident in Inferior leads T wave inversion more evident in Lateral leads Confirmed by Shira Anne MD ([id number]) on 06/12/2023 7:23:47 AM Electronically Signed By: SHIRA ANNE 06/12/23 0723 PATIENT NAME: RUDYMOIZ HARRY Electrocardiogram DATE OF : 52 PHYSICIAN: SHIRA ANNE REPORT #: [id number] REPORT IS CONFIDENTIAL AND NOT TO BE RELEASED WITHOUT AUTHORIZATION
--- NOTE | 2023-06-12 07:23 | EKG ---
[facility] [address] [facility] [place] [address] Signed Normal sinus rhythm Right bundle branch block T wave abnormality, consider inferolateral ischemia Abnormal ECG When compared with ECG of 04-JUN-2023 09:50, NC interval has decreased Confirmed by Althea Anne MD ([id number]) on 06/12/2023 7:23:30 AM Electronically Signed By: ALTHEA ANNE 06/12/23 0723 PATIENT NAME: MOIZ GRANT Electrocardiogram DATE OF : 52 PHYSICIAN: ALTHEA ANNE REPORT #: [id number] REPORT IS CONFIDENTIAL AND NOT TO BE RELEASED WITHOUT AUTHORIZATION
--- NOTE | 2023-06-12 07:24 | EKG ---
[facility] [address] [facility] [place] [address] Signed Sinus bradycardia with 1st degree AV block Right bundle branch block T wave abnormality, consider lateral ischemia Abnormal ECG When compared with ECG of 11-JUN-2023 22:53, (Unconfirmed) QT has shortened Confirmed by Althea Anne MD ([id number]) on 06/12/2023 7:24:35 AM Electronically Signed By: ALTHEA ANNE 06/12/23 0724 PATIENT NAME: MOIZ GRANT JR Electrocardiogram DATE OF : 52 PHYSICIAN: ALTHEA ANNE REPORT #: [id number] REPORT IS CONFIDENTIAL AND NOT TO BE RELEASED WITHOUT AUTHORIZATION
--- NOTE | 2023-06-12 07:25 | EKG ---
[facility] [address] [facility] [place], [place] [address] Signed Sinus tachycardia Right bundle branch block T wave abnormality, consider inferior ischemia Abnormal ECG Confirmed by Althea Anne MD ([id number]) on 06/12/2023 7:25:22 AM Electronically Signed By: ALTHEA ANNE 06/12/23 0725 PATIENT NAME: MOIZ GRANT Electrocardiogram DATE OF : 52 PHYSICIAN: ALTHEA ANNE REPORT #: [id number] REPORT IS CONFIDENTIAL AND NOT TO BE RELEASED WITHOUT AUTHORIZATION
[2023-06-12] MEDS ORDERED: VENLAFAXINE HCL 75 MG CAPCR PO SCH (09:00)
[2023-06-12] MEDS ORDERED: LOSARTAN POTASS50 MG PO (09:09)
[2023-06-12 10:53] LABS: LITHIUM 0.8 mmol/L (0.6-1.2)
[2023-06-12] MEDS ORDERED: LEVOTHYROXINE SODIUM 50 MCG TAB PO SCH (11:04)
[2023-06-12] MEDS ORDERED: diazePAM 5 MG TAB PO PRN (11:15)
[2023-06-13 05:42] VITALS: BP 149/86
[2023-06-13 06:01] VITALS: BP 149/86
--- NOTE | 2023-06-13 14:01 | EKG ---
[facility] [address] [facility] [place] [address] Signed Sinus bradycardia with 1st degree AV block Right bundle branch block Abnormal ECG When compared with ECG of 12-JUN-2023 04:56, QT has lengthened Confirmed by Althea Anne MD ([id number]) on 06/13/2023 2:01:16 PM Electronically Signed By: ALTHEA ANNE 06/13/23 1401 PATIENT NAME: MOIZ GRANT Electrocardiogram DATE OF : 52 PHYSICIAN: ALTHEA ANNE REPORT #: [id number] REPORT IS CONFIDENTIAL AND NOT TO BE RELEASED WITHOUT AUTHORIZATION
== END 2023-06-13 10:10 | disposition home or self-care (01) | DRG 918 ==
LOC: ED 07:49 → CCU 07:50
PROVIDERS: Emergency Medicine; ADMIT Internal Medicine; ATTEND Internal Medicine
DX: T56.891A Toxic effect of other metals, accidental (unintentional), initial encounter (principal); N17.9 Acute kidney failure, unspecified; I10 Essential (primary) hypertension; G47.30 Sleep apnea, unspecified; E03.9 Hypothyroidism, unspecified; F32.A Depression, unspecified; E11.9 Type 2 diabetes mellitus without complications; F41.9 Anxiety disorder, unspecified; E83.42 Hypomagnesemia; Z98.890 Other specified postprocedural states; Z98.52 Vasectomy status; Z88.8 Allergy status to other drugs, medicaments and biological substances; Z79.899 Other long term (current) drug therapy; Z79.890 Hormone replacement therapy; Z79.84 Long term (current) use of oral hypoglycemic drugs
CPT/HCPCS: 36415; 71045; 80048; 80053; 80178; 83735; 83880; 84484; 85025; 85379; 93005; 93010; 96361; 96365; 96366; 96367; 96375; 96376; 97162; 97166; 99285-25; A9270-GY; G0378; J1815; J2060; J2250; J3475; J7030; Q0177

== ENCOUNTER 2024-01-22 16:29 | Emergency (ER) | payer MEDICARE ==
[~2024-01-22] VITALS: Ht 177.8 cm; Wt 100.0 kg
[~2024-01-22 16:29] MED LIST changes: +LITHIUM CARBON300 M1 PO; +LOSARTAN POTASS50 MG PO; +OXYBUTYNIN CHLO10 MG PO; +TRAZODONE HCL100 MG PO
[2024-01-22] MEDS ORDERED: SOLIFENACIN SUC10 MG PO (16:40)
[2024-01-22 17:18] LABS: INFLUENZA B NAA NEGATIVE (NEGATIVE); RESPIRATORY SYNCYTIAL VIR NAA NEGATIVE (NEGATIVE)
[2024-01-22 18:43] VITALS: BP 146/87
== END 2024-01-22 18:46 | disposition home or self-care (01) ==
LOC: ED 16:29
PROVIDERS: Emergency Medicine
DX: J06.9 Acute upper respiratory infection, unspecified (principal); I10 Essential (primary) hypertension; E11.9 Type 2 diabetes mellitus without complications; G47.30 Sleep apnea, unspecified; E03.9 Hypothyroidism, unspecified; Z88.8 Allergy status to other drugs, medicaments and biological substances; Z79.84 Long term (current) use of oral hypoglycemic drugs; Z79.890 Hormone replacement therapy; Z79.899 Other long term (current) drug therapy
CPT/HCPCS: 71046; 87502; 99283-25; U0002

== ENCOUNTER 2025-02-05 08:09 | Emergency (ER) | payer MEDICARE ==
[~2025-02-05] VITALS: Ht 177.8 cm; Wt 96.3 kg
[~2025-02-05 08:09] MED LIST changes: +SOLIFENACIN SUC10 MG PO
[2025-02-05 08:45] LABS: BASOPHILS 1.1 % (0.2-1.2); EOSINOPHILS 2.4 % (0.8-7.0); LYMPHOCYTES 35.6 % (21.8-53.1); MCH 27.5 PG (25.7-32.2); MCHC 32.6 g/dL (32.3-36.5); MCV 84.4 fL (79.0-92.2); MONOCYTES 8.7 % (5.3-12.2); NEUTROPHILS 51.5 % (34.0-67.9); RBC 4.54 M/uL (4.63-6.08)
[2025-02-05] MEDS ORDERED: MORPHINE SULFATE 4 MG/ML VIAL IV ONE ×2 (08:45→09:30)
[2025-02-05 08:55] LABS: ALT (SGPT) 24.0 U/L (14-59); AST (SGOT) 16.0 U/L (15-37); GLOMERULAR FILTRATION RATE,EST 63.0 mL/min (>60); PROTEIN, TOTAL 7.4 g/dL (6.4-8.2); UREA NITROGEN 19.0 mg/dL (7-18)
[2025-02-05 09:34] LABS: BLOOD/HGB, URINE NEGATIVE (Negative); KETONE, URINE SMALL (Negative); LEUK ESTERASE, URINE NEGATIVE (negative); NITRITE, URINE NEGATIVE (negative)
[2025-02-05] MEDS ORDERED: HYDROmorphone HCL 1 MG/ML SYR IV PRN (10:15)
[2025-02-05] MEDS ORDERED: ONDANSETRON ODT4 MG PO (10:59)
[2025-02-05] MEDS ORDERED: HYDROCODON-ACE1 EA10 PO (10:59)
[2025-02-05] MEDS ORDERED: IBU600 MG PO (10:59)
[2025-02-05 11:16] VITALS: BP 119/106
[2025-02-10] MEDS ORDERED: ATORVASTATIN CA40 MG PO (08:44)
[2025-02-10] MEDS ORDERED: ANUSOL-HC30 GM PR ×2 (09:37→20:49)
[2025-02-10] MEDS ORDERED: MIRALAX119 GM PO (09:37)
[2025-02-10] MEDS ORDERED: HYDROCODON-ACE1 EA10 PO (20:49)
[2025-02-10] MEDS ORDERED: LACTULOSE10 GM/15 M PO (20:50)
== END 2025-02-05 11:21 | disposition home or self-care (01) ==
LOC: ED 08:09
PROVIDERS: Emergency Medicine
DX: N13.2 Hydronephrosis with renal and ureteral calculous obstruction (principal); I10 Essential (primary) hypertension; G47.30 Sleep apnea, unspecified; E11.9 Type 2 diabetes mellitus without complications; Z79.84 Long term (current) use of oral hypoglycemic drugs; Z79.899 Other long term (current) drug therapy; Z88.1 Allergy status to other antibiotic agents; Z88.8 Allergy status to other drugs, medicaments and biological substances
CPT/HCPCS: 36415; 74176; 80053; 81003; 83690; 85025; 96374; 96375; 96376; 99284-25; J1171; J2270; J2405